=== PATIENT | male | born 1960 | race Caucasian/White ===

== ENCOUNTER 2019-09-28 13:58 | Emergency (ER) | payer SELFPAY ==
[~2019-09-28] VITALS: Ht 172.7 cm; Wt 75.3 kg
[~2019-09-28 13:58] MED LIST: GLU500 PO; LOVA40TA4 PO; [UNRECOGNIZED DRUG - CODE] PO; [UNRECOGNIZED DRUG - CODE] PO
[2019-09-28 14:05] VITALS: BP 105/67
--- NOTE | 2019-09-28 14:10 | NUR ---
PT DIRECTED TO WAIT IN LOBBY
--- NOTE | 2019-09-28 14:52 | NUR ---
58 Y/O MALE PRESENTS WITH RIGHT SIDED HEAD PAIN STARTING ON FRIDAY. DENIES ANY WEAKNESS/DIZZINESS/VISION CHANGES. RATES PAIN 8/10, SHARP, RADIATING THROUGHOUT HEAD. DENIES RECENT INJURY. RESP EVEN AND UNLABORED. LUNG SOUNDS CLEAR IN BILAT LOBES. DENIES ANY FEVER/CHILLS. PT ABLE TO AMBULATE TO CHAIR. AAOX4. CAP REFILL <3 PMH: DM, HTN, PACEMAKER NKA
[2019-09-28] MEDS ORDERED: KETOROLAC 30 MG/ML VIAL IM ONE (15:20)
[2019-09-28 16:07] VITALS: BP 105/67
--- NOTE | 2019-09-28 16:07 | NUR ---
Patient discharged with v/s stable. Written and verbal after care instructions given and explained. Patient alert, oriented and verbalized understanding of instructions. Ambulatory with steady gait. All questions addressed prior to discharge. ID band removed. Patient advised to follow up with PMD. Rx of IBUPROFEN,ACETAMINOPHEN given. Patient educated on indication of medication including possible reaction and side effects. Opportunity to ask questions provided and answered.
== END 2019-09-28 16:07 | disposition home or self-care (01) ==
LOC: MED 13:58
DX: R51 Headache (principal); H57.11 Ocular pain, right eye; E11.9 Type 2 diabetes mellitus without complications; I10 Essential (primary) hypertension; Z95.0 Presence of cardiac pacemaker; Z79.899 Other long term (current) drug therapy
CPT/HCPCS: 93005; 96372; 99283; J1885